=== PATIENT | male | born 1995 | race Caucasian/White ===

== ENCOUNTER 2018-07-17 14:46 | Emergency (ER) | payer SELFPAY | END 2018-07-17 15:34 | disposition home or self-care (01) | LOC: MADERS 14:46 | DX: S39.012A Strain of muscle, fascia and tendon of lower back, initial encounter (principal); F17.210 Nicotine dependence, cigarettes, uncomplicated; V89.2XXA Person injured in unspecified motor-vehicle accident, traffic, initial encounter | CPT/HCPCS: 99281 ==

== ENCOUNTER 2021-10-02 11:26 | Emergency (ER) | payer SELFPAY ==
[2021-10-02] MEDS ORDERED: Benzonatate 100 MG CAP ONE (13:05)
[2021-10-02] MEDS ORDERED: Ketorolac Tromethamine 60 MG/2 ML VIAL ONE (13:05)
[2021-10-03 15:47] LABS: SARS-CoV-2 PCR by NAA Not Detected (NotDetected)
== END 2021-10-02 13:17 | disposition home or self-care (01) ==
LOC: MADERS 11:26 → EEVIPCON 11:26 → MADERS 13:17
DX: B34.9 Viral infection, unspecified (principal); F17.210 Nicotine dependence, cigarettes, uncomplicated; Z20.822 Contact with and (suspected) exposure to COVID-19
CPT/HCPCS: 87804; 96372; 99283; J1885; U0003; U0005

== ENCOUNTER 2022-02-09 08:11 | Emergency (ER) | payer SELFPAY ==
[2022-02-09] MEDS ORDERED: Erythromycin Base 0.5% Ophth Oint 3.5 gm Tube ONE (08:28)
[2022-02-09] MEDS ORDERED: Ketorolac Tromethamine 60 MG/2 ML VIAL ONE (08:47)
[2022-02-09] MEDS ORDERED: Boostrix 0.5 ML (Tdap) VIAL ONE (08:47)
== END 2022-02-09 08:58 | disposition home or self-care (01) ==
LOC: MADERS 08:11
DX: H16.8 Other keratitis (principal); F17.210 Nicotine dependence, cigarettes, uncomplicated
CPT/HCPCS: 90471; 90715; 96372; 99283; J1885